=== PATIENT | female | born 1970 | race Two or more races ===

== ENCOUNTER 2024-01-13 11:00 | Inpatient (IN) | payer OTHER ==
[~2024-01-13] VITALS: Ht 162.6 cm; Wt 88.9 kg
[~2024-01-13 11:00] MED LIST: COZAAR25 MG PO; LINZESS145 MCG PO
[2024-01-19] MEDS ORDERED: CEFAZOLIN SODIUM 1,000 MG VIAL ONE (06:31)
[2024-01-19] MEDS ORDERED: LIDOCAINE HCL 1%/EPINEPHRINE 20ML VIAL IJ ONE ×2 (07:28→08:30)
[2024-01-19] MEDS ORDERED: POVIDONE-IODINE 118 ML BOTT TOP ONE ×2 (07:28→08:30)
[2024-01-19] MEDS ORDERED: MYRBETRIQ50 MG (08:21)
[2024-01-19] MEDS ORDERED: ATORVASTATIN CA20 MG (08:21)
[2024-01-19] MEDS ORDERED: CELECOXIB200 MG (08:21)
[2024-01-19] MEDS ORDERED: CITALOPRAM HBR10 MG (08:21)
[2024-01-19] MEDS ORDERED: PANTOPRAZOLE SO40 MG (08:22)
[2024-01-19] MEDS ORDERED: BUPIVACAINE HCL 30 ML VIAL IJ ONE (08:30)
[2024-01-19] MEDS ORDERED: CEFAZOLIN SODIUM 2,000 MG in 0.9 % SODIUM CHLORIDE 100 ML IV ONE (08:30)
[2024-01-19] MEDS ORDERED: VISTASEAL DUAL APPICATOR 1 EACH APPL TOP ONE ×2 (08:53→09:15)
[2024-01-19] MEDS ORDERED: THROMBIN,HU/FIBRINOGEN/CALCIUM 4 ML SYRINGE TOP ONE ×2 (08:53→09:15)
[2024-01-19] MEDS ORDERED: RINGERS SOLUTION,LACTATED 1,000 ML IV SCH (09:54)
[2024-01-19] MEDS ORDERED: CEFOXITIN SODIUM 2,000 MG VIAL IV SCH (09:55)
[2024-01-19] MEDS ORDERED: ONDANSETRON HCL 2 MG/ML VIAL IV SCH (09:55)
[2024-01-19] MEDS ORDERED: ACETAMINOPHEN 325 MG TABLET PO SCH ×2 (09:56→18:00)
[2024-01-19] MEDS ORDERED: CELECOXIB 200 MG CAPSULE PO SCH ×2 (09:56→17:00)
[2024-01-19] MEDS ORDERED: GABAPENTIN 100 MG CAPSULE PO SCH ×2 (09:57→17:00)
[2024-01-19] MEDS ORDERED: PATIENTS OWN MEDICATION (MEDICAMENTO EN PISO) PO SCH (11:58)
[2024-01-19] MEDS ORDERED: ENALAPRILAT DIHYDRATE 1.25 MG/ML VIAL IV PRN (12:00)
[2024-01-19] MEDS ORDERED: CEFOXITIN SODIUM 2,000 MG VIAL IV ONE (13:17)
[2024-01-19 13:37] LABS: HEMATOCRIT 34.1 % (36.0-45.00); MEAN CELL VOLUME 81.8 fL (80.00-100.00); MEAN CORPUSCULAR HEMOGLOBIN 26.4 pg (27.00-32.0); MEAN CORPUSCULAR HGB CONC 32.3 g/dl (32.0-36.0); PLATELET COUNT 282 K/uL (150-450); RED BLOOD COUNT 4.17 M/uL (4.00-6.00)
[2024-01-19 14:04] LABS: CALCIUM 8.7 mg/dL (8.5-10.1); CREATININE SERUM 0.61 mg/dL (0.55-1.02); GFR 102.99; POTASSIUM 4.23 mEq/L (3.5-5.1)
[2024-01-19 17:16] LABS: HEMATOCRIT 34.1 % (36.0-45.00); HEMOGLOBIN 11.1 g/dL (12.0-15.00); MEAN CELL VOLUME 82.7 fL (80.00-100.00); MEAN CORPUSCULAR HEMOGLOBIN 26.9 pg (27.00-32.0); MEAN CORPUSCULAR HGB CONC 32.5 g/dl (32.0-36.0); PLATELET COUNT 309 K/uL (150-450); RED BLOOD COUNT 4.13 M/uL (4.00-6.00); RED CELL DISTRIBUTION WIDTH 15.5 % (11.5-14.5)
[2024-01-20] MEDS ORDERED: LOSARTAN POTASSIUM 25 MG TABLET PO SCH (09:00)
== END 2024-01-20 09:41 | disposition home or self-care (01) | DRG 743 ==
LOC: O/R 01-19 05:30 → OB/GYN 01-19 05:30
PROVIDERS: ADMIT Obstetrics & Gynecology Gynecology; ATTEND Obstetrics & Gynecology Gynecology
PROC: 0UT24ZZ Resection of Bilateral Ovaries, Percutaneous Endoscopic Approach (ICD-10-PCS; 2024-01-19)
PROC: 0UT74ZZ Resection of Bilateral Fallopian Tubes, Percutaneous Endoscopic Approach (ICD-10-PCS; 2024-01-19)
PROC: 0UT94ZZ Resection of Uterus, Percutaneous Endoscopic Approach (ICD-10-PCS; principal; 2024-01-19 07:00)
DX: D25.1 Intramural leiomyoma of uterus (principal); N80.03 Adenomyosis of the uterus; N83.12 Corpus luteum cyst of left ovary; Z20.822 Contact with and (suspected) exposure to COVID-19; D50.0 Iron deficiency anemia secondary to blood loss (chronic); I11.9 Hypertensive heart disease without heart failure; N32.81 Overactive bladder

== ENCOUNTER 2024-05-21 08:08 | Emergency (ER) | payer OTHER ==
[~2024-05-21] VITALS: Ht 162.6 cm; Wt 92.1 kg
[~2024-05-21 08:08] MED LIST changes: +ATORVASTATIN CA20 MG; +CELECOXIB200 MG; +CITALOPRAM HBR10 MG; +MYRBETRIQ50 MG; +PANTOPRAZOLE SO40 MG
[2024-05-21] MEDS ORDERED: METOPROLOL SUCC25 MG PO (08:23)
[2024-05-21] MEDS ORDERED: ONDANSETRON HCL 2 MG/ML VIAL IV ONE (09:15)
[2024-05-21] MEDS ORDERED: MORPHINE SULFATE 4 MG/ML VIAL IV ONE (09:15)
[2024-05-21] MEDS ORDERED: PANTOPRAZOLE SODIUM 40 MG/VIAL VIAL IV ONE (09:15)
[2024-05-21] MEDS ORDERED: 0.9 % SODIUM CHLORIDE 1,000 ML IV ONE (09:15)
[2024-05-21] MEDS ORDERED: ONDANSETRON HCL 2 MG/ML VIAL ONE (09:17)
[2024-05-21 09:49] LABS: HEMATOCRIT 33.5 % (36.0-45.00); HEMOGLOBIN 10.8 g/dL (12.0-15.00); MEAN CELL VOLUME 79.2 fL (80.00-100.00); MEAN CORPUSCULAR HEMOGLOBIN 25.6 pg (27.00-32.0); MEAN CORPUSCULAR HGB CONC 32.3 g/dl (32.0-36.0); PLATELET COUNT 301 K/uL (150-450); RED BLOOD COUNT 4.23 M/uL (4.00-6.00)
[2024-05-21 10:11] LABS: ALBUMIN 3.4 gm/dL (3.4-5.0); BILIRUBIN TOTAL 0.65 mg/dL (0.3-1.2); CALCIUM 9.4 mg/dL (8.5-10.1); CREATININE SERUM 0.77 mg/dL (0.55-1.02); GFR 78.72; GLOBULINA 4.2 G/DL (2.4-3.5); POTASSIUM 3.71 mEq/L (3.5-5.1); TOTAL PROTEIN 7.6 gm/dL (6.4-8.2)
[2024-05-21 10:14] LABS: INR 1.02; PARTIAL THROMBOPLASTIN TIME 27.8 SECONDS (22.0-34.0); PROTHROMBIN TIME 10.7 SECONDS (9.0-11.5)
[2024-05-21] MEDS ORDERED: KETO10TA2 PO (14:52)
== END 2024-05-21 15:24 | disposition home or self-care (01) ==
LOC: ER 08:09
PROVIDERS: General Practice
DX: K62.5 Hemorrhage of anus and rectum (principal); I10 Essential (primary) hypertension; Z91.041 Radiographic dye allergy status
CPT/HCPCS: 36415; 74177; 96365; 99284; J2270; J2405; J3490; J7030; Q9965

== ENCOUNTER 2025-04-11 06:04 | Inpatient (IN) | payer OTHER ==
[2025-04-06 09:42] VITALS: BP 114/72
[~2025-04-11] VITALS: Ht 157.5 cm; Wt 89.4 kg
[~2025-04-11 06:04] MED LIST changes: +ADULT LOW DOSE81 M1; +KETO10TA2 PO; +LINZESS; +METOPROLOL SUCC25 MG PO; +TOPROL XL25 M1
[2025-04-11] MEDS ORDERED: POVIDONE-IODINE 118 ML BOTT TOP ONE (10:45)
[2025-04-11] MEDS ORDERED: CEFTRIAXONE SODIUM 2,000 MG VIAL IV ONE (10:45)
[2025-04-11] MEDS ORDERED: METRONIDAZOLE/SODIUM CHLORIDE 500 MG/100 ML PIGGYBACK IV ONE (10:45)
[2025-04-11] MEDS ORDERED: BUPIVACAINE HCL 30 ML VIAL IJ SCH (10:45)
[2025-04-11] MEDS ORDERED: HEMOSTATIC MATRIX 1 KIT KIT TOP ONE (10:45)
[2025-04-11] MEDS ORDERED: KETOROLAC TROMETHAMINE 30 MG VIAL IM SCH (12:00)
[2025-04-11] MEDS ORDERED: RINGERS SOLUTION,LACTATED 1,000 ML IV SCH (12:00)
[2025-04-11] MEDS ORDERED: ONDANSETRON HCL 2 MG/ML VIAL IV PRN (12:00)
[2025-04-11] MEDS ORDERED: OxyCODONE HCL 5 MG TABLET (ROXICODONE) PO PRN (12:00)
[2025-04-11] MEDS ORDERED: MORPHINE SULFATE 4 MG/ML CARTRIDGE IV PRN (12:00)
[2025-04-11] MEDS ORDERED: MORPHINE SULFATE 4 MG/ML VIAL IV ONE (12:40)
[2025-04-11] MEDS ORDERED: HYOSCYAMINE SULFATE 0.125 MG TAB.SUBL SL SCH (13:00)
[2025-04-11] MEDS ORDERED: SIMETHICONE 125 MG CAPSULE PO SCH (13:00)
[2025-04-11] MEDS ORDERED: KETOROLAC TROMETHAMINE 30 MG VIAL IM ONE (13:10)
[2025-04-11] MEDS ORDERED: ACETAMINOPHEN 500 MG GEL..CAP PO SCH (14:00)
[2025-04-11 14:30] VITALS: BP 146/84; O2SAT 98
[2025-04-11 16:10] VITALS: BP 119/78; O2SAT 97
[2025-04-11] MEDS ORDERED: GABAPENTIN 300 MG CAPSULE PO SCH (17:00)
[2025-04-11] MEDS ORDERED: METOCLOPRAMIDE HCL 5 MG/ML VIAL IV SCH (17:00)
[2025-04-11] MEDS ORDERED: FAMOTIDINE/PF 20 MG/2 ML VIAL IV PUSH SCH (21:00)
[2025-04-12 04:38] VITALS: BP 102/65; O2SAT 97
[2025-04-12 08:00] VITALS: BP 155/85; O2SAT 96
[2025-04-12] MEDS ORDERED: METOPROLOL SUCCINATE 25 MG TAB.SR.24H PO SCH ×2 (09:00)
[2025-04-12] MEDS ORDERED: LACTOBACILLUS ACIDOPHILUS 1 CAP CAP PO SCH (09:00)
[2025-04-12] MEDS ORDERED: PERCOCET 5-3251 EACH PO (10:15)
[2025-04-12] MEDS ORDERED: CELEBREX100 MG PO (10:15)
[2025-04-12] MEDS ORDERED: GABAPENTIN300 MG PO (10:16)
[2025-04-12] MEDS ORDERED: TAMSULOSIN HCL 0.4 MG CAP PO STA (11:05)
== END 2025-04-12 11:43 | disposition home or self-care (01) | DRG 748 ==
LOC: CIR.AMB 06:04 → O/R 12:10 → SURG 12:10 → CIR.AMB 18:15 → SURG 04-12 11:43
PROVIDERS: ADMIT Surgery; ATTEND Surgery
PROC: 0D8R0ZZ Division of Anal Sphincter, Open Approach (ICD-10-PCS; 2025-04-11)
PROC: 3E0T3BZ Introduction of Anesthetic Agent into Peripheral Nerves and Plexi, Percutaneous Approach (ICD-10-PCS; 2025-04-11)
PROC: 0JQC0ZZ Repair Pelvic Region Subcutaneous Tissue and Fascia, Open Approach (ICD-10-PCS; principal; 2025-04-11 18:15)
DX: N81.6 Rectocele (principal); K56.50 Intestinal adhesions [bands], unspecified as to partial versus complete obstruction; K62.5 Hemorrhage of anus and rectum; K60.1 Chronic anal fissure; D50.0 Iron deficiency anemia secondary to blood loss (chronic); K59.02 Outlet dysfunction constipation; N32.81 Overactive bladder; N80.03 Adenomyosis of the uterus; N94.5 Secondary dysmenorrhea; I11.9 Hypertensive heart disease without heart failure

== ENCOUNTER 2025-05-02 07:11 | Emergency (ER) | payer OTHER ==
[~2025-05-02] VITALS: Ht 162.6 cm; Wt 88.9 kg
[~2025-05-02 07:11] MED LIST changes: +CELEBREX100 MG PO; +GABAPENTIN300 MG PO; +PERCOCET 5-3251 EACH PO
[2025-05-02 07:17] VITALS: BP 131/86; O2SAT 99
[2025-05-02] MEDS ORDERED: AUGMENTIN600 MG/5 M (07:20)
[2025-05-02] MEDS ORDERED: 0.9 % SODIUM CHLORIDE 1,000 ML IV SCH (08:30)
[2025-05-02 08:48] LABS: BASO % 0.6 % (0.1-1.2); EOS # 0.34 (0.04-0.54); EOS % 4.9 % (0.7-7.0); LYMPH # 1.66 (1.18-3.74); LYMPH % 24.0 % (19.3-53.1); MEAN PLATELET VOLUME 11.00 fl (9.4-12.4); MONO # 0.59 (0.24-0.82); MONO % 8.5 % (4.7-12.5); NEUT # 4.28 (1.56-6.13); NEUT % 61.7 % (34.0-71.1); RED CELL DISTRIBUTION WIDTH 14.8 % (11.6-14.4)
[2025-05-02 09:31] LABS: URINE APPEARANCE Clear; URINE BILIRRUBIN Negative (NEGATIVE); URINE BLOOD Negative; URINE COLOR Yellow; URINE GLUCOSE Negative (NEGATIVE); URINE KETONE Negative (NEGATIVE); URINE LEUKOCYTE Moderate; URINE NITRATE Negative; URINE PROTEIN Negative (NEGATIVE); URINE UROBILINOGEN 0.2 E.U./dl
[2025-05-02 09:32] LABS: ALT/SGPT 32.0 U/L (12-78); AST/SGOT 24.0 U/L (15-37); BILIRUBIN TOTAL 0.49 mg/dL (0.3-1.2); BUN CREA RATIO 23.0 (7.0-25.0); CREATININE SERUM 0.7 mg/dL (0.55-1.02); GFR 87.53; GLOBULINA 4.3 G/DL (2.4-3.5); GLUCOSE FASTING 91.0 mg/dL (65-100); OSMOLALITY SERUM 284.0 MOSM/KG (275-295)
[2025-05-02 09:42] LABS: URINE BACTERIA 236.4 uL (0.0-1933); URINE CAST 2.78 uL (0.0-1.40); URINE EPITHELIAL CELLS 49.6 uL (0.0-38.8); URINE WBC 185.0 uL (0.0-23.2)
[2025-05-02 10:04] LABS: URINE RBC 1.9 uL (0.0-20.8)
[2025-05-02 12:32] LABS: COVID-19 AG NEGATIVE (NEGATIVE)
== END 2025-05-02 13:32 | disposition home or self-care (01) ==
LOC: ER 07:12
PROVIDERS: General Practice
DX: N39.0 Urinary tract infection, site not specified (principal); R10.9 Unspecified abdominal pain; R50.9 Fever, unspecified; K62.89 Other specified diseases of anus and rectum; T81.9XXA Unspecified complication of procedure, initial encounter; Z20.822 Contact with and (suspected) exposure to COVID-19; I10 Essential (primary) hypertension; Z91.041 Radiographic dye allergy status
CPT/HCPCS: 36415; 74177; 96365; 96366; 99284; J7030; Q9965